=== PATIENT | female | born 1960 | race Caucasian/White ===

== ENCOUNTER → 2017-06-07 | Outpatient (CLI) | payer BC ==
[~2017-06-07] MED LIST: CYMBALTA30 MG PO; LANTUS100 U/M1 SQ; LIPITOR PO; LISINOPRIL10 MG PO; LYRICA PO; MOBIC15 MG PO; MULTI VITAMIN1 EACH PO; PROTONIX PO
--- NOTE | ~2017-06-07 | MY11 ---
[facility] A Service of [facility] RADIOLOGY TEXT RESULTS PATIENT: DELFINO WHITESIDE LOCATION: [facility] : 62 UNIT #: [id number] AGE: [address]: Abby Alejo MD SEX: F ORDER DR: [id number] [place] [id number] O MR#: [id number] Acc #: [id number] NAME: DELFINO WHITESIDE : 1960 SEX: F STUDY DATE/TIME: 06/07/2017 8:53 UNIT: [facility] ROOM: STUDY DESCRIPTION: MY Mammogram Screening Dig Arjun Attending Physician: Abby Alejo M.D. Referring Physician: Abby Alejo M.D. Ordering Physician: Abby Alejo M.D. Primary Care Physician: Abby Alejo M.D. MEDICAL IMAGING REPORT This report is preliminary unless electronic signature is present. EXAM Digital screening mammogram, 06/07/2017 HISTORY 56-year-old woman positive family history, both grandmothers postmenopausal, sister in her 30s. Prior bilateral whole breast biopsies. Annual screening. COMPARISON Mammograms date to 10/10/2009 with most recent 12/31/2014. FINDINGS Digital imaging of each breast was completed utilizing screening protocol. Review includes FDA-approved CAD device. The breast parenchyma is fatty replaced. Two small nodular opacities project upper outer posterior third left breast. Single circumscribed nodule projects centrally right breast. Findings are stable. I see no suspicious mass characteristics. There are no interval occurring microcalcifications and no suspicious architectural deformity. IMPRESSION Stable benign mammogram. Annual screening recommended. Patients over the age of 40 are entered into a reminder system with target due date for the next mammogram. A result letter will also be sent to the patient. BIRADS: 2 Benign Finding Dictated by... Waylon Cunningham M.D. [facility] A Service of [facility] RADIOLOGY TEXT RESULTS PATIENT: DELFINO WHITESIDE LOCATION: [facility] : 62 UNIT #: [id number] AGE: [address]: Abby Alejo MD SEX: F ORDER DR: THIS IS AN ELECTRONICALLY VERIFIED REPORT Waylon Cunningham M.D. at 06/07/2017 2:39 PM Latia TD: 06/07/2017 13:31 JOB #: [id number] MEDICAL IMAGING REPORT Page 1 of 1
== END | disposition home or self-care (01) ==
LOC: SMAM 08:13
DX: Z12.31 Encounter for screening mammogram for malignant neoplasm of breast (principal); Z80.3 Family history of malignant neoplasm of breast; Z98.890 Other specified postprocedural states
CPT/HCPCS: G0202